=== PATIENT | male | born 1980 | race Caucasian/White ===

== ENCOUNTER 2025-07-05 11:10 | Emergency (ER) | payer SELFPAY | END 2025-07-05 13:43 | disposition home or self-care (01) | LOC: MW.ED 11:10 | DX: S93.401A Sprain of unspecified ligament of right ankle, initial encounter (principal); K21.9 Gastro-esophageal reflux disease without esophagitis; Z79.899 Other long term (current) drug therapy; Z75.3 Unavailability and inaccessibility of health-care facilities; X58.XXXA Exposure to other specified factors, initial encounter | CPT/HCPCS: 73610; 73620; 99283; A9270 ==